=== PATIENT | female | born 1985 | race Caucasian/White ===

== ENCOUNTER 2016-07-05 02:06 | Emergency (ER) | payer OTHER ==
[~2016-07-05] VITALS: Ht 160 cm; Wt 54.4 kg
--- NOTE | 2016-07-05 02:19 | ED GENERAL ADULT ---
History of Present Illness General Chief Complaint: Female Urogenital Problems Stated Complaint: ?UTI,?KIDNEY STONE Source: patient Exam Limitations: no limitations Vital Signs & Intake/Output Vital Signs & Intake/Output Vital Signs Date Time Temp Pulse Resp B/P B/P Pulse O2 O2 Flow FiO2 Mean Ox Delivery Rate 07/05 0642 97.9 80 22 113/77 98 07/05 0233 97.9 62 18 122/83 98 Allergies Coded Allergies: No Known Allergies (07/05/16) Reconcile Medications Ciprofloxacin HCl (Cipro) 500 MG TABLET 1 TAB PO BID UTI Ondansetron HCl (Zofran) 4 MG TABLET 1 TAB PO Q6-8P NAUSEA Oxycodone HCl/Acetaminophen (Percocet 5-325 MG Tablet) 5 MG-325 MG TABLET 1 TAB PO BID PRN PAIN Tamsulosin HCl (Flomax) 0.4 MG CAP.ER.24H 1 CAP PO DAILY KIDNEY STONE Triage Nurses Notes Reviewed? yes Onset: Abrupt Duration: hour(s): Timing: recent history HPI: 07/05/16 2:36 AM 30-year-old female presents to the emergency department for right-sided flank pain. The patient states she was in her usual state of health until earlier today when she developed signs and symptoms like her past urinary tract infections. But then she developed right flank pain. No fever no vomiting no other complaints. She has past medical history of urinary tract infection. Past surgical history for wisdom tooth extraction. She said her last menstrual period was approximately one week ago no vaginal discharge, no fever. The onset of her symptoms were abrupt, the duration has been the last 24 hours, the severity severity is significant as her symptoms required her to come to the emergency department for care. Physical exam she does have right-sided CVA tenderness and minimal tenderness to the right lower quadrant. Past History Medical History Any Pertinent Medical History? see below for history Renal: URINARY TRACT INFECTIONS Surgical History Surgical History: non-contributory Family History Hx Contributory? No Review of Systems Review of Systems Constitutional: Denies: fever. EENTM: Reports: no symptoms. Respiratory: Reports: no symptoms. Cardiovascular: Reports: no symptoms. GI: Reports: abdominal pain, nausea. Genitourinary: Reports: dysuria. Musculoskeletal: Reports: back pain. Skin: Denies: rash. Neurological/Psychological: Reports: no symptoms. Hematologic/Endocrine: Reports: no symptoms. Physical Exam Physical Exam General Appearance: well developed/nourished, alert, awake, anxious, moderate distress Head: atraumatic, normal appearance Eyes: Bilateral: normal appearance, PERRL, EOMI. Ears, Nose, Throat: normal ENT inspection Neck: normal inspection, supple, full range of motion Respiratory: normal breath sounds, no respiratory distress Cardiovascular: regular rate/rhythm Peripheral Pulses: 4+ radial (R), 4+ radial (L) Gastrointestinal: soft, tenderness Back: CVA tenderness (R) Extremities: normal inspection, no edema Neurologic/Psych: no motor/sensory deficits, awake, alert, oriented x 3 Skin: intact, normal color, warm/dry Core Measures ACS in differential dx? No CVA/TIA Diagnosis: No Severe Sepsis Present: No Septic Shock Present: No Progress Differential Diagnoses I considered the following diagnoses in my evaluation of the patient: [Renal colic, PID, UTI, pyelonephritis, renal colic, appendicitis] Plan of Care: Orders Procedure Date/time Status COMPREHENSIVE METABOLIC PANEL 07/05 236 Complete CBC WITHOUT DIFFERENTIAL 07/05 236 Complete URINE 07/05 224 Complete CULTURE,URINE 07/06 219 Active URINALYSIS 07/06 219 Complete Laboratory Tests 07/05/16 0245: Anion Gap 13, Estimated GFR > 60, BUN/Creatinine Ratio 22.5, Glucose 129 H, Calcium 9.6, Total Bilirubin 0.6, AST 23, ALT 30, Alkaline Phosphatase 72, Total Protein 7.5, Albumin 4.2, Globulin 3.3, Albumin/Globulin Ratio 1.3, CBC w Diff NO MAN DIFF REQ, RBC 4.18 L, MCV 90.2, MCH 30.7, RDW 13.0, MPV 8.3, Gran % 71.2 , Lymphocytes % 20.2 L, Monocytes % 5.6, Eosinophils % 2.5, Basophils % 0.5, Absolute Granulocytes 7.0 H, Absolute Lymphocytes 2.0, Absolute Monocytes 0.5, Absolute Eosinophils 0.2, Absolute Basophils 0, PUBS MCHC 34.1 07/05/16 023: Urine Test NEGATIVE 07/05/16 0230: Urine Color ICTRC H, Urine Clarity CLEAR, Urine pH 6.0, Ur Specific [place] <= 1.005, Urine Protein 30 H, Urine Ketones NEG, Urine Nitrite POS H, Urine Bilirubin NEG, Urine Urobilinogen 2.0 H, Ur Leukocyte Esterase TRACE H, Ur Microscopic SEDIMENT EXAMINED, Urine RBC 1-3, Urine WBC RARE, Ur Epithelial Cells FEW, Urine Hemoglobin MOD H, Urine Glucose 100 H Microbiology 07/05 0230 URINE ROUT: Urine Culture - RECD Initial ED EKG: none Departure Departure Disposition: HOME OR SELF CARE Condition: Stable Clinical Impression Primary Impression: Renal colic Referrals: PATIENT HAS NO PRIMARY CARE DR (PCP/Family) Departure Forms: Customer Survey General Discharge Information Prescriptions: Current Visit Scripts Ondansetron HCl (Zofran) 1 TAB PO Q6-8P #5 TAB Ciprofloxacin HCl (Cipro) 1 TAB PO BID #14 TAB Oxycodone HCl/Acetaminophen (Percocet 5-325 MG Tablet) 1 TAB PO BID PRN PAIN #10 TAB Tamsulosin HCl (Flomax) 1 CAP PO DAILY #5 CAP Comments 07/05/16 4 am The patient continues to have ongoing right lower quadrant pain. She has right lower quadrant tenderness. White blood cell count was normal. Risks and benefits were discussed obtaining a CT scan. The patient elected to have the CAT scan of the abdomen and pelvis to exclude appendicitis. PATIENT: AYSHA MURILLO PRESENT AGE: 30 PATIENT ACCOUNT NO: [id number] : 87 LOCATION: [facility] ORDERING PHYSICIAN: CHAR FLORES DO SERVICE DATE: 07/05/16 EXAM TYPE: CAT - CT ABD & PELVIS W IV CONTRAST EXAMINATION: CT ABDOMEN AND PELVIS WITH CONTRAST CLINICAL INFORMATION: Right lower quadrant abdominal pain. Evaluate for appendicitis. COMPARISON: No relevant prior imaging is available. TECHNIQUE: Multidetector volumetric imaging was performed of the abdomen and pelvis before and after the IV administration of 95 mL of Optiray 320 intravenous contrast. Sagittal and coronal reformatted images were obtained on the technologist's workstation. DLP: 275.78 mGy-cm FINDINGS: LUNG BASES: Lung bases are clear. There is no pleural or pericardial effusion. LIVER, GALLBLADDER, AND BILIARY TREE: Liver attenuation is homogeneous and there is no evidence of a discrete hepatic parenchymal mass. The gallbladder is decompressed. There is mild nonspecific intrahepatic biliary ductal dilatation. Size of the common duct is within limits of normal variation measuring 4 mm in diameter. PANCREAS: Unremarkable. SPLEEN: Unremarkable. ADRENAL GLANDS: Unremarkable. KIDNEYS AND URETERS: There is an obstructive 3 mm calculus located within the distal right ureter at the ureteropelvic junction and there is mild associated right hydroureteronephrosis and a slightly delayed renal nephrogram on the right side. There is an additional nonobstructive punctate calcification located within an upper pole calyx of the right kidney measuring no greater than 2 mm in length. No calculi are visualized within the left kidney. BLADDER: Unremarkable. GASTROINTESTINAL TRACT: The stomach and small bowel are unremarkable. There is no free intraperitoneal air or fluid. The colon is unremarkable. The appendix is normal. ABDOMINAL WALL: The abdominal wall is intact with exception of a small fat-containing medical hernia. LYMPH NODES: No pathologically enlarged mesenteric or retroperitoneal lymph nodes. VASCULAR: The abdominal aorta and inferior vena cava are normal. PELVIC VISCERA: There is an anteverted uterus. No worrisome adnexal mass. OSSEOUS STRUCTURES: There is no acute osseous finding. Specifically no worrisome lytic or blastic osseous lesion. IMPRESSION: There is an obstructive 3 mm calculus at the right ureteropelvic junction and there is mild associated right hydroureteronephrosis. An additional nonobstructive 2 mm calculus is located within an upper pole calyx of the right kidney. There is no nephrolithiasis on the left. DICTATED BY: PADMINI WAY MD DATE/TIME DICTATED:07/05/16542 PHYSICAL SCIENCES INSTRUCTOR:ANAY DATE/TIME TRANSCRIBED:07/05/16542 CONFIDENTIAL, DO NOT COPY WITHOUT APPROPRIATE AUTHORIZATION. <Electronically signed in Other Vendor System> SIGNED BY: PADMINI WAY MD 07/05 0553 Critical Care Note Critical Care Note Critical Care Time: non-applicable
[2016-07-05 02:54] LABS: ABSOLUTE BASOPHIL COUNT 0 /CUMM (0.0-0.2); ABSOLUTE EOSINOPHIL COUNT 0.2 /CUMM (0.0-0.7); ABSOLUTE MONOCYTE COUNT 0.5 /CUMM (0.10-0.60); BASOPHIL % 0.5 % (0.0-2.0); EOSINOPHIL % 2.5 % (0-5); GRANULOCYTE % 71.2 % (42.2-75.2); HEMATOCRIT 37.7 % (37-47); MEAN CORPUSCULAR HGB 30.7 PG (27.0-31.0); MEAN CORPUSCULAR HGB CONC 34.1 G/DL (33.0-37.0); MEAN CORPUSCULAR VOLUME 90.2 FL (81.0-99.0); MEAN PLATELET VOLUME 8.3 FL (7.4-10.4); PLATELET COUNT 283 /CUMM (130-400); RED BLOOD CELL CT 4.18 /CUMM (4.20-5.40); WHITE BLOOD CELL COUNT 9.8 /CUMM (4.8-10.8)
--- NOTE | 2016-07-05 05:53 | CT SCAN REPORT ---
EXAMINATION: CT ABDOMEN AND PELVIS WITH CONTRAST CLINICAL INFORMATION: Right lower quadrant abdominal pain. Evaluate for appendicitis. COMPARISON: No relevant prior imaging is available. TECHNIQUE: Multidetector volumetric imaging was performed of the abdomen and pelvis before and after the IV administration of 95 mL of Optiray 320 intravenous contrast. Sagittal and coronal reformatted images were obtained on the technologist's workstation. DLP: 275.78 mGy-cm FINDINGS: LUNG BASES: Lung bases are clear. There is no pleural or pericardial effusion. LIVER, GALLBLADDER, AND BILIARY TREE: Liver attenuation is homogeneous and there is no evidence of a discrete hepatic parenchymal mass. The gallbladder is decompressed. There is mild nonspecific intrahepatic biliary ductal dilatation. Size of the common duct is within limits of normal variation measuring 4 mm in diameter. PANCREAS: Unremarkable. SPLEEN: Unremarkable. ADRENAL GLANDS: Unremarkable. KIDNEYS AND URETERS: There is an obstructive 3 mm calculus located within the distal right ureter at the ureteropelvic junction and there is mild associated right hydroureteronephrosis and a slightly delayed renal nephrogram on the right side. There is an additional nonobstructive punctate calcification located within an upper pole calyx of the right kidney measuring no greater than 2 mm in length. No calculi are visualized within the left kidney. BLADDER: Unremarkable. GASTROINTESTINAL TRACT: The stomach and small bowel are unremarkable. There is no free intraperitoneal air or fluid. The colon is unremarkable. The appendix is normal. ABDOMINAL WALL: The abdominal wall is intact with exception of a small fat-containing medical hernia. LYMPH NODES: No pathologically enlarged mesenteric or retroperitoneal lymph nodes. VASCULAR: The abdominal aorta and inferior vena cava are normal. PELVIC VISCERA: There is an anteverted uterus. No worrisome adnexal mass. OSSEOUS STRUCTURES: There is no acute osseous finding. Specifically no worrisome lytic or blastic osseous lesion. IMPRESSION: There is an obstructive 3 mm calculus at the right ureteropelvic junction and there is mild associated right hydroureteronephrosis. An additional nonobstructive 2 mm calculus is located within an upper pole calyx of the right kidney. There is no nephrolithiasis on the left.
[2016-07-05] MEDS ORDERED: ZOFRAN4 M2 PO (06:33)
[2016-07-05] MEDS ORDERED: PERCOCET 5-3251 EACH PO (06:33)
[2016-07-05] MEDS ORDERED: FLOMAX0.4 M1 PO (06:33)
[2016-07-05] MEDS ORDERED: CIPRO500 M1 PO (06:33)
[2016-07-05 06:42] VITALS: BP 113/77
== END 2016-07-05 06:44 ==
LOC: ERH 02:06
PROVIDERS: Emergency Medicine
DX: N23 Unspecified renal colic (principal)
CPT/HCPCS: 74177; 81001; 81025; 87086; 96361; 96374; 96375; J1885